=== PATIENT | male | born 1965 | race American Indian/Alaskan Native ===

== ENCOUNTER 2016-11-03 15:29 | Emergency (ER) | payer MEDICARE ==
[2016-11-03 15:55] VITALS: BP 140/93
[2016-11-03 16:27] LABS: Hematocrit 40.4 % (35.5-45.6); Hemoglobin 13.4 gm/dl (11.8-15.2); Mean Corpuscular HGB Conc 33 % (32-34); Mean Corpuscular Hemoglobin 27 pg (28-32); Mean Corpuscular Volume 83 fl (84-94); Platelet Count 232 K/mm3 (140-440); Red Blood Count 4.88 M/mm3 (3.65-5.03); Red Cell Distribution Width 15.2 % (13.2-15.2); White Blood Count 4.9 K/mm3 (4.5-11.0)
[2016-11-03 16:29] LABS: Alanine Aminotransferase 30 units/L (7-56); Albumin 4.3 g/dL (3.9-5); Albumin/Globulin Ratio 1.4 %; Alkaline Phosphatase 63 units/L (35-129); Anion Gap 18 mmol/L; BUN/Creatinine Ratio 13.84; Bilirubin,Total < 0.20 mg/dL (0.1-1.2); Blood Urea Nitrogen 18 mg/dL (9-20); Calcium 9.4 mg/dL (8.4-10.2); Carbon Dioxide 28 mmol/L (22-30); Chloride 97.1 mmol/L (98-107); Glucose 139 mg/dL (75-100); Lipase 62 units/L (13-60); Sodium 139 mmol/L (137-145); Total Protein 7.3 g/dL (6.3-8.2)
--- NOTE | 2016-11-03 16:38 | Emergency Department Report ---
Entered by RIMA HURD, acting as scribe for KIRSTIN BANG NP. Chief Complaint: Abdominal Pain Stated Complaint: ABD PAIN Time Seen by Provider: 11/03/16 16:20 - HPI History of Present Illness: 50 year old male HTN and HIV presents to the ED with c/o chronic RUQ pain started this morning. Patient reports he has frequent diarrhea but denies nausea , vomiting, fever, chills, blurry vision, chest pain, numbness, and tingling. [facility] and has SHx of cocaine usage. hx pancreatitis in drug rehab- cocaine ruq pain diarrhea pacing pmh gerd chronic pain md htn pancreatitis psh lipoma meds hctz seroquel gapap protonix trileptil vss labs p - ROS Review of Systems: Reports abd pain RUQ. Reports he has frequent diarrhea. Denies nausea, vomiting, fever, chills, blurry vision, chest pain, numbness, and tingling. - Exam Vital Signs: Vital Signs 11/03/16 15:48 Temperature 98.7 F Pulse Rate 95 H Respiratory 16 Rate Blood Pressure 140/93 O2 Sat by Pulse 96 Oximetry MSE screening note: Focused history and physical exam performed. Due to findings the following was ordered: Amylase, CBC, Comprehensive Metabolic, UDS, Lipase, PTT, Prothrombin Time, UA was ordered for patient. ED Medical Decision Making - Lab Data Result diagrams: 11/03/16 15:57 ED Disposition for MSE Condition: Stable This documentation as recorded by the scribe,RIMA HURD,accurately reflects the service I personally performed and the decisions made by me,KIRSTIN BANG NP.
[2016-11-03 16:48] LABS: Urine Drugs of Abuse Note Disclamer
[2016-11-03 17:00] LABS: INR 0.9 (0.87-1.13); Partial Thromboplastin Time 23.3 Sec. (24.2-36.6)
[2016-11-03 17:05] LABS: Bilirubin,Urine NEG (Negative); Blood,Urine NEG (Negative); Ketones,Urine NEG (Negative); Leukocyte Esterase,Urine NEG (Negative); Nitrite,Urine NEG (Negative); Protein,Urine <15 mg/dL mg/dL (Negative); Urobilinogen,Urine < 2.0 mg/dL (<2.0)
[2016-11-03] MEDS ORDERED: NACL ONE (17:42)
[2016-11-03 19:12] LABS: Basophils % (Manual) 0 % (0.0-1.8); Blastocytes % (Manual) 0 %
[2016-11-03 19:14] LABS: Anisocytosis 1+; Diff Status Complete; Platelet Estimate Consistent w Auto
== END 2016-11-03 21:50 | disposition left against medical advice (07) ==
LOC: ED 15:29
DX: R10.9 Unspecified abdominal pain (principal); Z53.21 Procedure and treatment not carried out due to patient leaving prior to being seen by health care provider
CPT/HCPCS: 36415; 80053; 80307; 81001; 82150; 83690; 85007; 85025; 85610; 85730

== ENCOUNTER 2016-11-19 08:09 | Emergency (ER) | payer MEDICARE ==
[2016-11-19 09:04] LABS: Alanine Aminotransferase 30 units/L (7-56); Albumin 4.3 g/dL (3.9-5); Albumin/Globulin Ratio 1.4 %; Alkaline Phosphatase 71 units/L (35-129); Anion Gap 18 mmol/L; BUN/Creatinine Ratio 15.83; Basophils % (Auto) 0.3 % (0.0-1.8); Blood Urea Nitrogen 19 mg/dL (9-20); Calcium 9.2 mg/dL (8.4-10.2); Carbon Dioxide 25 mmol/L (22-30); Chloride 98.2 mmol/L (98-107); Eosinophils % (Auto) 3.5 % (0.0-4.3); Glucose 97 mg/dL (75-100); Hemoglobin 13.1 gm/dl (11.8-15.2); Mean Corpuscular HGB Conc 33 % (32-34); Mean Corpuscular Hemoglobin 27 pg (28-32); Mean Corpuscular Volume 81 fl (84-94); Platelet Count 273 K/mm3 (140-440); Potassium 4.2 mmol/L (3.6-5.0); Red Blood Count 4.93 M/mm3 (3.65-5.03); Red Cell Distribution Width 14.8 % (13.2-15.2); Sodium 137 mmol/L (137-145); Total Protein 7.4 g/dL (6.3-8.2); White Blood Count 4.5 K/mm3 (4.5-11.0)
--- NOTE | 2016-11-19 10:10 | XRay Report ---
CHEST 2 VIEWS INDICATION: Shortness of breath. COMPARISON: None similar at this institution. FINDINGS: PA and lateral chest radiographs demonstrate normal cardiomediastinal silhouette. Clear lungs. Mild thoracic spine degenerative spurring. CONCLUSION: No acute disease in the chest. Thank you for the opportunity to participate in this patient's care.
[2016-11-19] MEDS ORDERED: TESSALON PERLES PO ONE (12:36)
[2016-11-19] MEDS ORDERED: TORADOL IM ONE (12:36)
--- NOTE | 2016-11-19 12:37 | Emergency Department Report ---
HPI - General Chief Complaint: Upper Respiratory Infection Time Seen by Provider: 11/19/16 11:36 - HPI HPI: The patient is a 51-year-old male who presents for evaluation of abdominal pain. The patient reports bilateral upper abdominal pain for the past 2 days, crampy in quality, radiating to the back, 10/10 in severity, constant since onset. He also reports a non-productive cough for the past one day, , mild in severity. The patient denies fever, chills, night sweats, trauma to the abdomen or back, diarrhea, blood in the stool, dark tarry stool, dysuria, hematuria, flank pain, genital discharge, inability to pass flatus. ED Past Medical Hx - Past Medical History Hx Hypertension: Yes Hx Psychiatric Treatment: Yes (bipolar, schizophrenia) Hx HIV: Yes Additional medical history: pancreatitis - Surgical History Past Surgical History?: Yes Additional Surgical History: hip , cyst removal - Social History Smoking Status: Current Every Day Smoker - Medications Home Medications: Home Medications Medication Instructions Recorded Confirmed Last Taken Type Gabapentin [Neurontin] 300 mg PO Q8HR 11/19/16 11/19/16 11/18/16 History Hydrochlorothiazide [HCTZ] 25 mg PO QDAY 11/19/16 11/19/16 11/18/16 History Ibuprofen [Motrin] 800 mg PO Q8HR PRN #15 tablet 11/19/16 Unknown Rx OXcarbazepine [Trileptal] 300 mg PO BID 11/19/16 11/19/16 11/18/16 History Pantoprazole [Protonix] 40 mg PO QDAY 11/19/16 11/19/16 11/18/16 History Quetiapine Fumarate [Seroquel] 300 mg PO HS 11/19/16 11/19/16 11/18/16 History ED Review of Systems ROS: Stated complaint: CHEST/HEAD COLD SYMPTOMS Other details as noted in HPI Constitutional: denies: fever ENT: denies: throat or neck pain Respiratory: denies: cough, shortness of breath Cardiovascular: denies: chest pain Endocrine: denies unexplained weight loss or gain Gastrointestinal: reports abdominal pain, nausea Genitourinary: denies: dysuria Musculoskeletal: denies: leg swelling Skin: denies: rash Neurological: denies: headache Hematological/Lymphatic: denies: easy bleeding or easy bruising Psych: denies sadness or hopelessness Physical Exam - Physical Exam Vital Signs: Vital Signs 11/19/16 08:19 Temperature 98.4 F Pulse Rate 103 H Respiratory 18 Rate Blood Pressure 122/87 O2 Sat by Pulse 98 Oximetry Physical Exam: General: well-nourished, well-developed, no acute distress Head: Normocephalic, atraumatic Eyes: normal sclera ENT: Mucous membranes are pink and moist Neck: trachea midline, neck supple, No neck stiffness, no cervical adenopathy Respiratory: Breath sounds equal bilaterally, no wheezing, rales, or rhonchi Cardio: S1 and S2 present, no murmurs, rubs, gallops, capillary refill is brisk Abdomen: Normoactive bowel sounds, soft abdomen, epigastric, left upper quadrant , periumbilical tens to palpation present, no rigidity, no guarding or rebound tenderness Chest WALL/Back: No tenderness to palpation of the chest wall, no CVA tenderness with percussion Musc: No pitting edema Skin: No rash Neuro: no facial drooping, normal speech Psych: Normal affect ED Course Vital Signs 11/19/16 08:19 Temperature 98.4 F Pulse Rate 103 H Respiratory 18 Rate Blood Pressure 122/87 O2 Sat by Pulse 98 Oximetry ED Medical Decision Making - Lab Data Result diagrams: 11/19/16 08:30 11/19/16 08:30 - Medical Decision Making The patient was seen and examined by myself. The patient is placed on a medical equipment technician and continuous pulse ox. On initial evaluation, the patient was found to be in no distress. Evaluation orders are placed. The patient is given IM Toradol for his pain. Lab results were non-concerning including WBC, hemoglobin, hematocrit, electrolytes, renal function, LFTs, lipase, and urinalysis. The patient was reevaluated and reported that their symptoms were markedly improved. The patient is stable for discharge with outpatient follow- up. The patient is given follow-up and return instructions. The patient expressed understanding and agreed with the plan. The patient is discharged in stable condition. Critical care attestation.: If time is entered above; I have spent that time in minutes in the direct care of this critically ill patient, excluding procedure time. ED Disposition Clinical Impression: Acute generalized abdominal pain, Myalgia, Upper respiratory infection, acute Disposition: DC-01 TO HOME OR SELFCARE Is pt being admited?: No Does the pt Need Aspirin: No Condition: Stable Instructions: Upper Respiratory Infection (ED), Musculoskeletal Pain (ED), Acute Abdominal Pain (ED) Referrals: PRIMARY CARE,MD [Primary Care Provider] - 3-5 Days Time of Disposition: 12:36
[2016-11-19 13:48] VITALS: BP 120/82
== END 2016-11-19 13:48 | disposition home or self-care (01) ==
LOC: ED 08:09
DX: J06.9 Acute upper respiratory infection, unspecified (principal); R10.84 Generalized abdominal pain; I10 Essential (primary) hypertension; F17.210 Nicotine dependence, cigarettes, uncomplicated
CPT/HCPCS: 36415; 71020; 80053; 83615; 85025; 87040; 93005; 93010; 96372; 99284; J1885

== ENCOUNTER 2017-08-26 10:42 | Emergency (ER) | payer MEDICARE ==
[2017-08-26] MEDS ORDERED: TORADOL IM ONE (12:35)
--- NOTE | 2017-08-26 12:44 | Emergency Department Report ---
ED Extremity Problem HPI - General Chief complaint: Extremity Injury, Upper Stated complaint: ARM PAIN Time Seen by Provider: 08/26/17 12:24 Source: patient Mode of arrival: Ambulatory Limitations: No Limitations - History of Present Illness Initial comments: Disposition is a 51-year-old [place] male who is complaining of right wrist pain for approximately 2 weeks. Patient states that he believes he has carpal tunnel syndrome however the patient's pain is at the base of the thumb near the tendon. The patient has pain just with movement of the thumb. Patient is able to move his wrist freely. Patient states his had no injury he's been wearing any [id number] Velcro wrist splint with no thumb isolation for the past several weeks with no improvement. Patient states the pain is a 10 out of 10 however the patient does appear calm and comfortable during the history and physical. Patient denies any other symptoms at this time. - Related Data Home Medications Medication Instructions Recorded Confirmed Last Taken Gabapentin [Neurontin] 300 mg PO Q8HR 11/19/16 11/19/16 11/18/16 Hydrochlorothiazide [HCTZ] 25 mg PO QDAY 11/19/16 11/19/16 11/18/16 OXcarbazepine [Trileptal] 300 mg PO BID 11/19/16 11/19/16 11/18/16 Pantoprazole [Protonix] 40 mg PO QDAY 11/19/16 11/19/16 11/18/16 Quetiapine Fumarate [Seroquel] 300 mg PO HS 11/19/16 11/19/16 11/18/16 Previous Rx's Medication Instructions Recorded Last Taken Type Ibuprofen [Motrin] 800 mg PO Q8HR PRN #15 tablet 11/19/16 Unknown Rx Ibuprofen [Motrin] 800 mg PO Q8HR PRN #20 tablet 08/26/17 Unknown Rx Allergies Allergy/AdvReac Type Severity Reaction Status Date / Time No Known Allergies Allergy Verified 08/26/17 10:54 ED Review of Systems ROS: Stated complaint: ARM PAIN Other details as noted in HPI Comment: All other systems reviewed and negative ED Past Medical Hx - Past Medical History Hx Hypertension: Yes Hx Psychiatric Treatment: Yes (bipolar, schizophrenia) Hx HIV: Yes Additional medical history: pancreatitis - Surgical History Additional Surgical History: hip , cyst removal - Social History Smoking Status: Current Every Day Smoker - Medications Home Medications: Home Medications Medication Instructions Recorded Confirmed Last Taken Type Gabapentin [Neurontin] 300 mg PO Q8HR 11/19/16 11/19/16 11/18/16 History Hydrochlorothiazide [HCTZ] 25 mg PO QDAY 11/19/16 11/19/16 11/18/16 History Ibuprofen [Motrin] 800 mg PO Q8HR PRN #15 tablet 11/19/16 Unknown Rx OXcarbazepine [Trileptal] 300 mg PO BID 11/19/16 11/19/16 11/18/16 History Pantoprazole [Protonix] 40 mg PO QDAY 11/19/16 11/19/16 11/18/16 History Quetiapine Fumarate [Seroquel] 300 mg PO HS 11/19/16 11/19/16 11/18/16 History Ibuprofen [Motrin] 800 mg PO Q8HR PRN #20 tablet 08/26/17 Unknown Rx ED Physical Exam - General Limitations: No Limitations General appearance: alert, in no apparent distress - Head Head exam: Present: atraumatic, normocephalic - Eye Eye exam: Present: normal appearance - ENT ENT exam: Present: mucous membranes moist - Neck Neck exam: Present: normal inspection - Respiratory Respiratory exam: Present: normal lung sounds bilaterally. Absent: respiratory distress - Cardiovascular Cardiovascular Exam: Present: regular rate, normal rhythm. Absent: systolic murmur, diastolic murmur, rubs, gallop - GI/Abdominal GI/Abdominal exam: Present: soft, normal bowel sounds - Rectal Rectal exam: Present: deferred - Extremities Exam Extremities exam: Present: normal inspection, tenderness (vision is tenderness at the tendon at the base of the thumb.) - Back Exam Back exam: Present: normal inspection - Neurological Exam Neurological exam: Present: alert, oriented X3 - Psychiatric Psychiatric exam: Present: normal affect, normal mood - Skin Skin exam: Present: warm, dry, intact, normal color. Absent: rash ED Course Vital Signs 08/26/17 10:54 Temperature 98.8 F Pulse Rate 88 Respiratory 16 Rate Blood Pressure 114/87 O2 Sat by Pulse 98 Oximetry ED Medical Decision Making - Medical Decision Making Patient was placed in a thumb spica splint to immobilize his thumb to give better immobilization improve healing. Patient also referred to orthopedics and patient will be discharged home at this time. Critical care attestation.: If time is entered above; I have spent that time in minutes in the direct care of this critically ill patient, excluding procedure time. ED Disposition Clinical Impression: Tendonitis Disposition: TO HOME OR SELFCARE Is pt being admited?: No Does the pt Need Aspirin: No Condition: Stable Instructions: Tendinitis (ED) Prescriptions: Ibuprofen [Motrin] 800 mg PO Q8HR PRN #20 tablet PRN Reason: Pain Referrals: NIA MAURO MD [Staff Physician] - 3-5 Days
[2017-08-26 13:11] VITALS: BP 114/76
== END 2017-08-26 13:10 | disposition home or self-care (01) ==
LOC: ED 10:42
DX: M65.841 Other synovitis and tenosynovitis, right hand (principal); F31.9 Bipolar disorder, unspecified; F20.9 Schizophrenia, unspecified; F17.200 Nicotine dependence, unspecified, uncomplicated; I10 Essential (primary) hypertension
CPT/HCPCS: 29125; 96372; 99283; J1885

== ENCOUNTER 2017-08-28 10:00 | Emergency (ER) | payer MEDICARE ==
[2017-08-28 10:09] VITALS: BP 150/82
--- NOTE | 2017-08-28 11:38 | Emergency Department Report ---
Upper Extremity - HPI Chief Complaint: Medical Clearance Stated Complaint: OCL TOO TIGHT Upper Extremity: Right Wrist Occurred When: >5 Days Mechanism: Unsure Symptoms: Yes Pain with Movement, No Deformity, No Limited Range of Movement, No Numbness, No Weakness, No Swelling, No Bruising/Ecchymosis, No Laceration or Abrasion Other History: Pt had OCL placed for tendonitis a few days ago and presents with pain that was relieved when he unwrapped. Noted to be no padding within splint. ED Review of Systems ROS: Stated complaint: OCL TOO TIGHT Other details as noted in HPI Constitutional: denies: chills, fever Eyes: denies: eye pain, eye discharge, vision change ENT: denies: ear pain, throat pain Respiratory: denies: cough, shortness of breath, wheezing Cardiovascular: denies: chest pain, palpitations Endocrine: no symptoms reported Gastrointestinal: denies: abdominal pain, nausea, diarrhea Genitourinary: denies: urgency, dysuria Musculoskeletal: as per HPI. denies: back pain, joint swelling, arthralgia Skin: denies: rash, lesions Neurological: denies: headache, weakness, paresthesias Psychiatric: denies: anxiety, depression Hematological/Lymphatic: denies: easy bleeding, easy bruising ED Past Medical Hx - Past Medical History Hx Hypertension: Yes Hx Psychiatric Treatment: Yes (bipolar, schizophrenia) Hx HIV: Yes Additional medical history: pancreatitis - Surgical History Additional Surgical History: hip , cyst removal - Social History Smoking Status: Never Smoker Substance Use Type: None - Medications Home Medications: Home Medications Medication Instructions Recorded Confirmed Last Taken Type Gabapentin [Neurontin] 300 mg PO Q8HR 11/19/16 11/19/16 11/18/16 History Hydrochlorothiazide [HCTZ] 25 mg PO QDAY 11/19/16 11/19/16 11/18/16 History Ibuprofen [Motrin] 800 mg PO Q8HR PRN #15 tablet 11/19/16 Unknown Rx OXcarbazepine [Trileptal] 300 mg PO BID 11/19/16 11/19/16 11/18/16 History Pantoprazole [Protonix] 40 mg PO QDAY 11/19/16 11/19/16 11/18/16 History Quetiapine Fumarate [Seroquel] 300 mg PO HS 11/19/16 11/19/16 11/18/16 History Ibuprofen [Motrin] 800 mg PO Q8HR PRN #20 tablet 08/26/17 Unknown Rx Upper Extremity Exam - Exam General: Vital signs noted. No distress. Alert and acting appropriately. Head and Torso: No HEENT Abnormality, No Neck Tenderness, No Chest/Lungs Abnormality, No Abdominal Tenderness, No Back Tenderness Shoulder Exam: Yes Normal Range of Motion in Shoulder, No Shoulder Tenderness, No Clavicle Tenderness, No Shoulder Deformity, No AC Joint Tenderness Arm Exam: No Arm/Humerus Tenderness, No Arm Deformity Elbow: Yes Normal Range of Motion in Elbow, No Elbow Tenderness, No Elbow Deformity Forearm: No Forearm Tenderness, No Forearm Deformity, No Pain with Pronation, No Pain with Supination Wrist: Yes Normal ROM in Wrist, No Wrist Tenderness, No Wrist Deformity, No Snuffbox Tenderness, No Pain with Axial Thumb Compression Hand: Yes Normal ROM in Digit(s), No Hand Tenderness, No Hand Deformity, No Digit Tenderness, No Digit(s) Deformity, No Tendon Dysfunction CMS Exam: No Broken Skin, No Normal Distal Pulses, No Normal Capillary Refill, No Normal Distal Sensation (no evidence of compartment syndrome) ED Course Vital Signs 08/28/17 10:04 Temperature 98.7 F Pulse Rate 83 Respiratory 18 Rate Blood Pressure 150/82 O2 Sat by Pulse 99 Oximetry - Reevaluation(s) Reevaluation #1: 08/28/17 11:36 Pt stable for d/c. ED Medical Decision Making - Medical Decision Making Pt presents with pain due to splint. Removed, exam is normal. Will give velcro splint and he has f/u with ortho on Thursday. - Differential Diagnosis sprain, tendonitis, compartment syndrome Critical care attestation.: If time is entered above; I have spent that time in minutes in the direct care of this critically ill patient, excluding procedure time. ED Disposition Clinical Impression: Tendonitis Disposition: - TO HOME OR SELFCARE Is pt being admited?: No Condition: Good Instructions: Tendinitis (ED) Referrals: NIA MAURO MD [Staff Physician] - 3-5 Days Time of Disposition: 11:37
== END 2017-08-28 12:05 | disposition home or self-care (01) ==
LOC: ED 10:00
DX: M77.21 Periarthritis, right wrist (principal); I10 Essential (primary) hypertension; F31.9 Bipolar disorder, unspecified; F20.9 Schizophrenia, unspecified
CPT/HCPCS: 99282

== ENCOUNTER 2018-11-08 18:04 | Emergency (ER) | payer MEDICARE ==
--- NOTE | 2018-11-08 18:21 | Event Note ---
ED Screening Note ED Screening Note: pt presents for SI for a couple days states he has a plan "does not want to tell me because he states we would stop him from doing it" states he is hearing voices saying to kill himself and to not be afraid states he is seeing things as well "spots" PMHx HIV, HTN, schizophrenia, bipolar, PTSD states he has been taking his medicines +smoker +occ drinker +marijuana last used a couple of days ago +cocaine last used a couple days ago This initial assessment/diagnostic orders/clinical plan/treatment(s) is/are subject to change based on patients health status, clinical progression and re- assessment by fellow clinical providers in the ED. Further treatment and workup at subsequent clinical providers discretion. Patient/guardian urged not to elope from the ED as their condition may be serious if not clinically assessed and managed. Initial orders include: psych protocol
[2018-11-08 19:33] LABS: Basophils % (Auto) 0.9 % (0.0-1.8); Eosinophils # (Auto) 0.1 K/mm3 (0.0-0.4); Eosinophils % (Auto) 2.2 % (0.0-4.3); Hematocrit 44.9 % (35.5-45.6); Hemoglobin 14.5 gm/dl (11.8-15.2); Lymphocytes # (Auto) 1.8 K/mm3 (1.2-5.4); Lymphocytes % (Auto) 45.4 % (13.4-35.0); Mean Corpuscular HGB Conc 32 % (32-34); Mean Corpuscular Volume 79 fl (84-94); Monocytes # (Auto) 0.2 K/mm3 (0.0-0.8); Monocytes % (Auto) 4.6 % (0.0-7.3); Platelet Count 267 K/mm3 (140-440); Red Cell Distribution Width 16.5 % (13.2-15.2)
[2018-11-08 19:49] LABS: Bilirubin,Urine NEG (Negative); Blood,Urine NEG (Negative); Color,Urine Yellow (Yellow); Mucus,Urine FEW /HPF; Protein,Urine <15 mg/dL mg/dL (Negative); Urobilinogen,Urine < 2.0 mg/dL (<2.0)
[2018-11-08 19:55] LABS: Alanine Aminotransferase 15 units/L (7-56); Albumin 4.1 g/dL (3.9-5); BUN/Creatinine Ratio 11; Blood Urea Nitrogen 12 mg/dL (9-20); Calcium 9.7 mg/dL (8.4-10.2); Hemolysis Index 7
[2018-11-08 20:00] LABS: Amphetamine Screen,Urine PRESUMPTIVE NEGATIVE; Benzodiazepines Screen,Urine PRESUMPTIVE NEGATIVE; Cannabinoid Screen,Urine PRESUMPTIVE NEGATIVE; Methadone Screen,Urine PRESUMPTIVE NEGATIVE; Opiate Screen,Urine PRESUMPTIVE NEGATIVE
[2018-11-08 20:46] LABS: Cocaine Screen,Urine PRESUMPTIVE POSITIVE
--- NOTE | 2018-11-08 23:15 | Emergency Department Report ---
ED Psych HPI - General Chief Complaint: Psych Stated Complaint: EVALUATION Time Seen by Provider: 11/08/18 18:18 Source: patient Mode of arrival: Ambulatory - History of Present Illness Initial Comments: Mr. Snow is a 53-year-old male with history of mental illness. He states that he has a history of bipolar disorder and schizophrenia. He normally takes Geodon. He also has a history of cocaine and marijuana abuse. He states that he is "suicidal." He does not have any plan to harm himself. He has command hallucinations telling him to kill himself. He hears voices. Additional medical history includes HIV, hypertension, PTSD. He states that he takes his medication "off and on". He's unable to recall the name of his psychiatrist. MD Complaint: suicidal ideation -: Gradual, days(s) (several days) Associated Psychiatric Symptoms: suicidal ideation, auditory hallucinations History of same: Yes Quality: constant Improves With: medication Worsens With: drug use Context: recent drug abuse, not taking psychiatric - Related Data Home Medications Medication Instructions Recorded Confirmed Last Taken Gabapentin [Neurontin] 300 mg PO Q8HR 11/19/16 11/19/16 11/18/16 OXcarbazepine [Trileptal] 300 mg PO BID 11/19/16 11/19/16 11/18/16 Pantoprazole [Protonix] 40 mg PO QDAY 11/19/16 11/19/16 11/18/16 Quetiapine Fumarate [Seroquel] 300 mg PO HS 11/19/16 11/19/16 11/18/16 hydroCHLOROthiazide [HCTZ] 25 mg PO QDAY 11/19/16 11/19/16 11/18/16 Previous Rx's Medication Instructions Recorded Last Taken Type Ibuprofen [Motrin] 800 mg PO Q8HR PRN #15 tablet 11/19/16 Unknown Rx Ibuprofen [Motrin] 800 mg PO Q8HR PRN #20 tablet 08/26/17 Unknown Rx Allergies Allergy/AdvReac Type Severity Reaction Status Date / Time No Known Allergies Allergy Verified 08/28/17 10:03 ED Review of Systems ROS: Stated complaint: EVALUATION Other details as noted in HPI Comment: All other systems reviewed and negative Constitutional: denies: fever, malaise Respiratory: denies: cough Cardiovascular: denies: chest pain ED Past Medical Hx - Past Medical History Previous Medical History?: Yes Hx Hypertension: Yes Hx Psychiatric Treatment: Yes (bipolar, schizophrenia; PTSD) Hx HIV: Yes Additional medical history: pancreatitis - Surgical History Past Surgical History?: Yes Additional Surgical History: hip , cyst removal - Social History Smoking Status: Current Every Day Smoker Substance Use Type: Cocaine, Marijuana Other Social History: He lives with family members - Medications Home Medications: Home Medications Medication Instructions Recorded Confirmed Last Taken Type Gabapentin [Neurontin] 300 mg PO Q8HR 11/19/16 11/19/16 11/18/16 History Ibuprofen [Motrin] 800 mg PO Q8HR PRN #15 tablet 11/19/16 Unknown Rx OXcarbazepine [Trileptal] 300 mg PO BID 11/19/16 11/19/16 11/18/16 History Pantoprazole [Protonix] 40 mg PO QDAY 11/19/16 11/19/16 11/18/16 History Quetiapine Fumarate [Seroquel] 300 mg PO HS 11/19/16 11/19/16 11/18/16 History hydroCHLOROthiazide [HCTZ] 25 mg PO QDAY 11/19/16 11/19/16 11/18/16 History Ibuprofen [Motrin] 800 mg PO Q8HR PRN #20 tablet 08/26/17 Unknown Rx ED Physical Exam - General Limitations: No Limitations General appearance: alert, in no apparent distress - Head Head exam: Present: atraumatic, normocephalic - Eye Eye exam: Present: normal appearance - ENT ENT exam: Present: mucous membranes moist - Neck Neck exam: Present: normal inspection - Respiratory Respiratory exam: Present: normal lung sounds bilaterally. Absent: respiratory distress, wheezes, rales, rhonchi - Cardiovascular Cardiovascular Exam: Present: regular rate, normal rhythm, normal heart sounds. Absent: systolic murmur, diastolic murmur, rubs, gallop - GI/Abdominal GI/Abdominal exam: Present: soft, normal bowel sounds. Absent: distended, tenderness, guarding, rebound - Rectal Rectal exam: Present: deferred - Extremities Exam Extremities exam: Present: normal inspection - Back Exam Back exam: Present: normal inspection - Neurological Exam Neurological exam: Present: alert, oriented X3 - Psychiatric Psychiatric exam: Present: normal affect, normal mood, suicidal ideation, other (insightful, cooperative, articulate normal affect). Absent: depressed, ag itated, anxious, manic, homicidal ideation - Skin Skin exam: Present: warm, dry, intact, normal color. Absent: rash ED Course Vital Signs 11/08/18 18:26 Temperature 98.4 F Pulse Rate 105 H Respiratory 18 Rate Blood Pressure 122/82 O2 Sat by Pulse 100 Oximetry ED Medical Decision Making - Lab Data Result diagrams: 11/08/18 19:07 11/08/18 19:07 Laboratory Results - last 24 hr 11/08/18 11/08/18 11/08/18 19:00 19:00 19:07 WBC 4.0 L RBC 5.70 H Hgb 14.5 Hct 44.9 MCV 79 L MCH 26 L MCHC 32 RDW 16.5 H Plt Count 267 Lymph % (Auto) 45.4 H [place] % (Auto) 4.6 Eos % (Auto) 2.2 Baso % (Auto) 0.9 Lymph # 1.8 [place] # 0.2 Eos # 0.1 Baso # 0.0 Seg Neutrophils % 46.9 Seg Neutrophils # 1.9 Sodium Potassium Chloride Carbon Dioxide Anion Gap BUN Creatinine Estimated GFR BUN/Creatinine Ratio Glucose Calcium Total Bilirubin AST ALT Alkaline Phosphatase Total Protein Albumin Albumin/Globulin Ratio Urine Color Yellow Urine Turbidity Clear Urine pH 6.0 Ur Specific [place] 1.021 Urine Protein <15 mg/dl Urine Glucose (UA) Neg Urine Ketones Neg Urine Blood Neg Urine Nitrite Neg Urine Bilirubin Neg Urine Urobilinogen < 2.0 Ur Leukocyte Esterase Neg Urine WBC (Auto) 1.0 Urine RBC (Auto) 2.0 Urine Mucus Few Salicylates Urine Opiates Screen Presumptive negative Urine Methadone Screen Presumptive negative Acetaminophen Ur Barbiturates Screen Presumptive negative Ur Phencyclidine Scrn Presumptive negative Ur Amphetamines Screen Presumptive negative U Benzodiazepines Scrn Presumptive negative Urine Cocaine Screen Presumptive positive U Marijuana (THC) Screen Presumptive negative Drugs of Abuse Note Disclamer Plasma/Serum Alcohol 11/08/18 11/08/18 11/08/18 19:07 19:07 19:07 WBC RBC Hgb Hct MCV MCH MCHC RDW Plt Count Lymph % (Auto) [place] % (Auto) Eos % (Auto) Baso % (Auto) Lymph # [place] # Eos # Baso # Seg Neutrophils % Seg Neutrophils # Sodium 139 Potassium 4.2 Chloride 103.0 Carbon Dioxide 24 Anion Gap 16 BUN 12 Creatinine 1.1 Estimated GFR > 60 BUN/Creatinine Ratio 11 Glucose 160 H Calcium 9.7 Total Bilirubin 0.20 AST 13 ALT 15 Alkaline Phosphatase 62 Total Protein 7.6 Albumin 4.1 Albumin/Globulin Ratio 1.2 Urine Color Urine Turbidity Urine pH Ur Specific [place] Urine Protein Urine Glucose (UA) Urine Ketones Urine Blood Urine Nitrite Urine Bilirubin Urine Urobilinogen Ur Leukocyte Esterase Urine WBC (Auto) Urine RBC (Auto) Urine Mucus Salicylates < 0.3 L Urine Opiates Screen Urine Methadone Screen Acetaminophen < 5.0 L Ur Barbiturates Screen Ur Phencyclidine Scrn Ur Amphetamines Screen U Benzodiazepines Scrn Urine Cocaine Screen U Marijuana (THC) Screen Drugs of Abuse Note Plasma/Serum Alcohol 11/08/18 19:07 WBC RBC Hgb Hct MCV MCH MCHC RDW Plt Count Lymph % (Auto) [place] % (Auto) Eos % (Auto) Baso % (Auto) Lymph # [place] # Eos # Baso # Seg Neutrophils % Seg Neutrophils # Sodium Potassium Chloride Carbon Dioxide Anion Gap BUN Creatinine Estimated GFR BUN/Creatinine Ratio Glucose Calcium Total Bilirubin AST ALT Alkaline Phosphatase Total Protein Albumin Albumin/Globulin Ratio Urine Color Urine Turbidity Urine pH Ur Specific [place] Urine Protein Urine Glucose (UA) Urine Ketones Urine Blood Urine Nitrite Urine Bilirubin Urine Urobilinogen Ur Leukocyte Esterase Urine WBC (Auto) Urine RBC (Auto) Urine Mucus Salicylates Urine Opiates Screen Urine Methadone Screen Acetaminophen Ur Barbiturates Screen Ur Phencyclidine Scrn Ur Amphetamines Screen U Benzodiazepines Scrn Urine Cocaine Screen U Marijuana (THC) Screen Drugs of Abuse Note Plasma/Serum Alcohol < 0.01 - Medical Decision Making Mr. Snow presents with auditory hallucinations and suicidal ideation. He does not plan to harm himself. He does not appear acutely psychotic. He is articulate and insightful. In my opinion I do not feel that he is at high risk for self-harm. Awaiting evaluation by our psychiatric team. He is medical clear for psychiatric care. Labs within normal limits. UDS positive for cocaine. Critical care attestation.: If time is entered above; I have spent that time in minutes in the direct care of this critically ill patient, excluding procedure time. ED Disposition Clinical Impression: Suicidal ideation, Polysubstance abuse, Cocaine abuse, PTSD (post-traumatic stress disorder), Bipolar disorder, Schizophrenia Disposition: - TO HOME OR SELFCARE Is pt being admited?: No Does the pt Need Aspirin: No Condition: Stable Referrals: CHRISTIANO CALLAWAY MD [Primary Care Provider] - 3-5 Days
[2018-11-09] MEDS ORDERED: TYLENOL ONE (01:01)
[2018-11-09] MEDS ORDERED: TYLENOL PO ONE (01:28)
--- NOTE | 2018-11-09 11:45 | Consultation ---
History of Present Illness - Reason for Consult Consult date: 11/09/18 Reason for consult: Mental Health Evaluation Requesting physician: CAROL LYON - Chief Complaint Chief complaint: "I am having some family issues" - History of Present Psychiatric Illness 53 y.o. AA male who presented to the ER for a mental health evaluation. Today the patient was calm and cooperative during the assessment. He stated that he is having issues with his family along with being depressed because of his HIV status. He stated that his home life isn't well. He stated that he do not get along with his grandparents whom he live with. He stated that he is seen at [facility] for his HIV. He stated that his depression have gotten worse the past several days. He rate his depression 5/10, with 10 being the worse. He stated that he have not seen a psychiatrist in several months. He denies SI/HI's and AVH's. He denies erratic sleep and a poor appetite. He denies alcohol consumption (etoh). Medications and Allergies Allergies Allergy/AdvReac Type Severity Reaction Status Date / Time No Known Allergies Allergy Verified 08/28/17 10:03 Home Medications Medication Instructions Recorded Confirmed Last Taken Type Gabapentin [Neurontin] 300 mg PO Q8HR 11/19/16 11/19/16 11/18/16 History Ibuprofen [Motrin] 800 mg PO Q8HR PRN #15 tablet 11/19/16 Unknown Rx OXcarbazepine [Trileptal] 300 mg PO BID 11/19/16 11/19/16 11/18/16 History Pantoprazole [Protonix] 40 mg PO QDAY 11/19/16 11/19/16 11/18/16 History Quetiapine Fumarate [Seroquel] 300 mg PO HS 11/19/16 11/19/16 11/18/16 History hydroCHLOROthiazide [HCTZ] 25 mg PO QDAY 11/19/16 11/19/16 11/18/16 History Ibuprofen [Motrin] 800 mg PO Q8HR PRN #20 tablet 08/26/17 Unknown Rx Past psychiatric history - Past Medical History Past Medical History: HIV/AIDS Past Surgical History: No surgical history - past Psychiatric treatment and history psychiatric treatment history: Hx of substance abuse and depression. Denies a fam psy hx. - Social History Social history: lives with family Mental Status Exam - Vital signs Last Vital Signs Temp 97.3 F L 11/09/18 03:04 Pulse 78 11/09/18 03:04 Resp 18 11/09/18 03:04 BP 104/65 11/09/18 03:04 Pulse Ox 100 11/09/18 03:04 - Exam Narrative exam: MSE: Appearance: calm, cooperative Behavior: regular eye contact Speech: regular rate and tone Mood: "okay" Affect: congruent to mood Thought Process: circumstantial Thought Content: denies SI/HI's and AVH's Motor Activity: ambulatory Cognition: A/O x3 Insight: fair Judgment: fair Results Result Diagrams: 11/08/18 19:07 11/08/18 19:07 Abnormal lab results 11/08/18 11/08/18 11/08/18 Range/Units 19:07 19:07 19:07 WBC 4.0 L (4.5-11.0) K/mm3 RBC 5.70 H (3.65-5.03) M/mm3 MCV 79 L (84-94) fl MCH 26 L (28-32) pg RDW 16.5 H (13.2-15.2) % Lymph % (Auto) 45.4 H (13.4-35.0) % Glucose 160 H (75-100) mg/dL Salicylates < 0.3 L (2.8-20.0) mg/dL Acetaminophen (10.0-30.0) ug/mL 11/08/18 Range/Units 19:07 WBC (4.5-11.0) K/mm3 RBC (3.65-5.03) M/mm3 MCV (84-94) fl MCH (28-32) pg RDW (13.2-15.2) % Lymph % (Auto) (13.4-35.0) % Glucose (75-100) mg/dL Salicylates (2.8-20.0) mg/dL Acetaminophen < 5.0 L (10.0-30.0) ug/mL All other labs normal. Assessment and Plan Assessment and plan: Impression: MDD. Substance Use DO. (cocaine). family Dynamic issues. Today the patient was calm and cooperative during the assessment. Recommendation/Plan: Start Zoloft 50 mg PO daily for depression. Discussed the possible suicidality/medication induced praveen with the patient reference Zoloft, he verbalized understanding. Dispo: The patient is pending PHP placement at [facility]. This is a voluntary program. Will staff with Dr. Valentino Calloway.
[2018-11-09] MEDS ORDERED: ZOLOFT PO SCH (12:00)
[2018-11-09 14:42] VITALS: BP 118/83
== END 2018-11-09 14:44 | disposition home or self-care (01) ==
LOC: EEVIPCON 18:04 → ED 18:04
DX: F31.9 Bipolar disorder, unspecified (principal); F20.9 Schizophrenia, unspecified; F43.10 Post-traumatic stress disorder, unspecified; F14.10 Cocaine abuse, uncomplicated; F12.10 Cannabis abuse, uncomplicated; F19.10 Other psychoactive substance abuse, uncomplicated; I10 Essential (primary) hypertension; F17.200 Nicotine dependence, unspecified, uncomplicated; Z98.890 Other specified postprocedural states; Z21 Asymptomatic human immunodeficiency virus [HIV] infection status; Z87.19 Personal history of other diseases of the digestive system; Z79.899 Other long term (current) drug therapy
CPT/HCPCS: 36415; 80053; 80307; 81001; 85025; 93005; 93010; 99284; G0480; 80320